=== PATIENT | male | born 1945 | race Caucasian/White ===

== ENCOUNTER → 2018-02-17 10:09 | Outpatient (CLI) | payer MEDICARE, OTHER, SELFPAY ==
--- NOTE | 2018-02-17 | DI.CT.S_ITS ---
PROCEDURE: CT ABDOMEN PELVIS WO/W CON INDICATIONS: HEMATURIA TECHNIQUE: Optional 5 mm thick noncontrast images acquired from the diaphragm to the symphysis pubis. After the administration of intravenous contrast, 5 mm thick images acquired from the diaphragm to the symphysis pubis after a 10-minute delay. 2 mm thick coronal and sagittal reformats were then performed of the kidneys and ureters. For radiation dose reduction, the following was used: automated exposure control, adjustment of mA and/or kV according to patient size. COMPARISON: None. FINDINGS: Image quality: Excellent. Lung bases: Lung bases are clear. Heart size is normal. Urinary system: Both kidneys are normal in size, without hydronephrosis on pre-contrast images. There are bilateral 2-4 mm nonobstructive renal collecting system calculi, none of which is associated with adjacent renal parenchymal inflammation. No perinephric fat stranding. There is normal bilateral renal enhancement. Renal calyces appear normal in morphology when filled with contrast. Opacified portions of both ureters demonstrate normal caliber. Bladder wall thickness is normal. No calcified bladder stones. Other solid organs: Liver is normal in size and enhancement. Gallbladder appears normal. Biliary system is non dilated. Pancreas enhances normally. Spleen is normal in size and enhancement. No adrenal nodules. Peritoneum and bowel: Bowel loops demonstrate normal wall thickness and caliber. No free fluid or air. Nodes and vessels: No retroperitoneal or mesenteric adenopathy by size criteria. Aorta and inferior vena cava are normal in size. Abdominal wall: No ventral hernias. Pelvis: No pathologic free pelvic fluid. No inguinal hernias or adenopathy. Bones: No suspicious bony lesions. No vertebral body compression fractures. IMPRESSION: The urothelium appears free of mass lesion, no renal cortical mass is identified. The prostate gland is small in size and shows no evidence of mass lesion extending from the prostate into adjacent structures. A definite source of hematuria is not found other than the presence of several scattered nonobstructive 2-4 mm bilateral renal collecting system calculi. No ureteral calculi or bladder calculus is found. Dictated by: Aniceto Veras M.D. on 02/17/2018 at 13:54 Approved by: Aniceto Veras M.D. on 02/17/2018 at 13:55
== END ==
PROVIDERS: PCP Internal Medicine; Visit Provider Urology
DX: R31.0 Gross hematuria (principal); N20.0 Calculus of kidney
CPT/HCPCS: 74178; Q9967

== ENCOUNTER → 2021-09-10 11:53 | Outpatient (CLI) | payer MEDICARE, OTHER, SELFPAY ==
--- NOTE | 2021-09-10 12:01 | DI.RAD.S_ITS ---
PROCEDURE: XR ABDOMEN 1V INDICATIONS: NEPHROLITHIASIS TECHNIQUE: One view of the abdomen acquired. COMPARISON: [facility], CT, CT IVP, 10/04/2020, 14:47. FINDINGS: Surgical changes and devices: None. Bowel: Bowel gas pattern is normal. Soft tissues: Bilateral renal calculi project over both renal shadows measuring up to 8 mm over the lower pole the right kidney. Kidneys are partially obscured by fecal debris. Bones: Convex right thoracolumbar scoliosis present. Normal bone mineralization. IMPRESSION: Bilateral nephrolithiasis Approved by: Alfonso Choe M.D. on 09/10/2021 at 17:42
== END ==
PROVIDERS: Referring Provider Urology; Visit Provider Urology
DX: N20.0 Calculus of kidney (principal)
CPT/HCPCS: 74018